=== PATIENT | male | born 1930 | race Caucasian/White ===

== ENCOUNTER 2018-03-16 11:17 | Emergency (ER) | payer MEDICARE, BC ==
[2018-03-16 09:44] LABS: BASOPHILS % (AUTO) 1 % (0-3); CALCIUM 8.6 mg/dl (8.5-10.1); CARBON DIOXIDE 25.9 mEq/L (21-32); CREATININE 1.25 mg/dl (0.80-1.30); CRP INFLAMMATORY 2.57 mg/dl (0.00-0.33); EOSINOPHILS % (AUTO) 0 % (0-9); HEMATOCRIT 41 % (39-53); HEMOGLOBIN 12.7 gm/dl (13.5-17.7); MEAN CORPUSCULAR HEMOGLOBIN 24.4 pg (27.0-32.0); MEAN CORPUSCULAR HGB CONC 31.1 gm/dl (32.0-36.0); MONOCYTES % (AUTO) 7.6 % (0-12); NEUTROPHILS % (AUTO) 65.6 % (37-80); POTASSIUM 3.9 mMol/L (3.5-5.1)
[2018-03-16 10:05] LABS: ANISOCYTOSIS SLIGHT; MEAN CORPUSCULAR VOLUME 79 fL (80-100)
[2018-03-16 10:51] LABS: SEDIMENTATION RATE 15 mm/hr (0-15)
[2018-03-16] MEDS ORDERED: HEPARIN SODIUM 5000 U/ML SOL IV ONE (14:02)
[2018-03-16] MEDS ORDERED: HEPARIN PREMIX 25,000 U/250 ML SOL IV PRN (14:04)
[2018-03-16] MEDS ORDERED: HEPARIN SODIUM 5000 U/ML SOL ONE ×3 (14:12→14:15)
[2018-03-16] MEDS ORDERED: SODIUM CHLORIDE 0.9% FLUSH 10 ML SOL IV PRN (14:14)
[2018-03-16 14:16] VITALS: TEMP 96.3
[2018-03-16 14:55] VITALS: BP 138/80; PULSE 98; RESP 16; O2SAT 97
== END 2018-03-16 14:45 | disposition short-term general hospital (02) | DRG 556 ==
LOC: ED 11:17
DX: M79.604 Pain in right leg (principal); I82.401 Acute embolism and thrombosis of unspecified deep veins of right lower extremity; T82.868A Thrombosis due to vascular prosthetic devices, implants and grafts, initial encounter; D68.61 Antiphospholipid syndrome; L97.812 Non-pressure chronic ulcer of other part of right lower leg with fat layer exposed; D68.59 Other primary thrombophilia; I82.409 Acute embolism and thrombosis of unspecified deep veins of unspecified lower extremity; M79.89 Other specified soft tissue disorders; T87.89 Other complications of amputation stump; N18.3 Chronic kidney disease, stage 3 (moderate); R60.9 Edema, unspecified
CPT/HCPCS: 36415; 80048; 85025; 85378; 85651; 96374; 99215; 99284; J1644; A6232